=== PATIENT | female | born 1990 | race Asian ===

== ENCOUNTER 2025-04-16 00:15 | Inpatient (IN) | payer SELFPAY ==
[~2025-04-16] VITALS: Ht 157.5 cm; Wt 68.5 kg
[2025-04-16] MEDS: haloperidoL LACTATE 5 MG/ML VIAL IM ONE (02:01)
[2025-04-16] MEDS: LORazepam 2 MG/ML VIAL IM ONE (02:01)
[2025-04-16] MEDS: DiphenhydrAMINE HCL 50 MG/ML VIAL IM ONE (02:01)
[2025-04-16] MEDS ORDERED: haloperidoL 5 MG TABLET PO PRN (03:45)
[2025-04-16] MEDS ORDERED: LORazepam 2 MG TABLET PO PRN (03:45)
[2025-04-16] MEDS ORDERED: ZOLPIDEM TARTRATE 10 MG TABLET PO PRN (03:45)
[2025-04-16 04:00] LABS: COVID AG,FIA SOURCE NASAL SWAB
[2025-04-16 04:13] LABS: SARS-COV2 (COVID) ANTIGEN,FIA Negative (Negative)
[2025-04-16 05:51] LABS: BASOPHILS % (AUTO) 0.7 % (0.0-2.0); EOSINOPHILS % (AUTO) 2.3 % (1.0-6.0); HEMATOCRIT 32.9 % (36-46); HEMOGLOBIN 10.8 g/dL (12.0-16.0); LYMPHOCYTES # (AUTO) 1.4 K/uL (1.0-4.8); LYMPHOCYTES % (AUTO) 30.8 % (22.0-44.0); MEAN CORPUSCULAR HEMOGLOBIN 27.4 pg (26.0-34.0); MEAN CORPUSCULAR HGB CONC 32.9 G/dL (31.0-37.0); MEAN CORPUSCULAR VOLUME 83 fL (80-100); MONOCYTES # (AUTO) 0.5 K/uL (0.1-1.0); MONOCYTES % (AUTO) 9.9 % (2.0-9.0); NEUTROPHILS # (AUTO) 2.6 K/uL (1.8-7.7); NEUTROPHILS % (AUTO) 56.3 % (40.0-70.0); PLATELET COUNT (AUTO) 233 K/uL (150-450); RED BLOOD CELL COUNT(AUTO) 3.95 MIL/uL (4.00-5.20); RED CELL DISTRIBUTION WIDTH 16.8 % (11.5-14.5); WHITE BLOOD COUNT (AUTO) 4.7 K/uL (4.5-11.0)
[2025-04-16 05:55] LABS: ANION GAP 14 mmol/L (8-16); CARBON DIOXIDE 24 mmol/L (22-29); CHLORIDE 107 mmol/L (98-107); CREATININE 0.57 mg/dL (0.60-1.30); GLOMERULAR FILTR. RATE CALC > 60 mL/min (>60); GLUCOSE,RANDOM 144 mg/dL (70-110); POTASSIUM 3.7 mmol/L (3.5-5.1); SODIUM SERUM 145 mmol/L (136-145); UREA NITROGEN, BLOOD 7 mg/dL (7-18)
[2025-04-16 06:57] VITALS: O2SAT 98
[2025-04-16 11:00] VITALS: BP 128/77; PULSE 96; RESP 17; TEMP 98.2; O2SAT 98
[2025-04-16] MEDS ORDERED: DOCUSATE SODIUM 100 MG CAPSULE PO PRN (19:45)
[2025-04-16] MEDS ORDERED: ONDANSETRON 4 MG TABLET PO PRN (19:45)
[2025-04-16] MEDS ORDERED: ALBUTEROL SULFATE HFA 90 MCG/PUFF 8 GM INHALER IH PRN (19:45)
[2025-04-16] MEDS ORDERED: MAGNESIUM HYDROXIDE SUSPENSION 30 ML UDCUP PO PRN (19:45)
[2025-04-16] MEDS ORDERED: CloNIDine HCL 0.1 MG TABLET PO PRN (19:45)
[2025-04-16] MEDS ORDERED: ACETAMINOPHEN 325 MG TABLET PO PRN (19:45)
[2025-04-16] MEDS ORDERED: LOPERAMIDE HCL 2 MG CAPSULE PO PRN (19:45)
[2025-04-16] MEDS ORDERED: MAG HYDROX/ALUMINUM HYD/SIMETH ES 30 ML SUSPENSION UDCUP PO PRN (19:45)
[2025-04-16] MEDS ORDERED: BACITRACIN 28 GM OINTMENT TP PRN (19:45)
[2025-04-16] MEDS ORDERED: BENZOCAINE/MENTHOL [CEPACOL] LOZENGE PO PRN (19:45)
[2025-04-16] MEDS ORDERED: IBUPROFEN 600 MG TABLET PO PRN (19:45)
[2025-04-16] MEDS ORDERED: OMEPRAZOLE 20 MG CAPSULE PO PRN (19:45)
[2025-04-16] MEDS ORDERED: PETROLATUM,WHITE 28 GM JELLY TP PRN (19:45)
[2025-04-16 22:19] VITALS: BP 133/85; PULSE 95; RESP 17; O2SAT 98
[2025-04-17 08:11] VITALS: BP 136/87; PULSE 95; RESP 17; TEMP 97.1; O2SAT 97
[2025-04-17 20:29] VITALS: BP 132/96; PULSE 94; RESP 18; TEMP 97.8; O2SAT 97
[2025-04-18 08:18] VITALS: RESP 16
[2025-04-18 08:56] LABS: BASOPHILS % (AUTO) 0.8 % (0.0-2.0); HEMATOCRIT 37.9 % (36-46); HEMOGLOBIN 12.7 g/dL (12.0-16.0); LYMPHOCYTES # (AUTO) 1.3 K/uL (1.0-4.8); LYMPHOCYTES % (AUTO) 26.9 % (22.0-44.0); MEAN CORPUSCULAR HEMOGLOBIN 27.7 pg (26.0-34.0); MEAN CORPUSCULAR HGB CONC 33.4 G/dL (31.0-37.0); MEAN CORPUSCULAR VOLUME 83 fL (80-100); MONOCYTES # (AUTO) 0.4 K/uL (0.1-1.0); MONOCYTES % (AUTO) 8.2 % (2.0-9.0); NEUTROPHILS # (AUTO) 2.9 K/uL (1.8-7.7); NEUTROPHILS % (AUTO) 60.1 % (40.0-70.0); PLATELET COUNT (AUTO) 267 K/uL (150-450); RED BLOOD CELL COUNT(AUTO) 4.57 MIL/uL (4.00-5.20); RED CELL DISTRIBUTION WIDTH 16.5 % (11.5-14.5); WHITE BLOOD COUNT (AUTO) 4.8 K/uL (4.5-11.0)
[2025-04-18 09:06] LABS: HEMOGLOBIN A1C 5.8 % (3.8-5.6)
[2025-04-18 09:21] LABS: ALANINE AMINOTRANSFERASE 84 U/L (12-78); ALBUMIN 3.9 g/dL (3.4-5.0); ALKALINE PHOSPHATASE 56 U/L (46-116); ANION GAP 9 mmol/L (8-16); ASPARTATE AMINOTRANSFERASE 122 U/L (15-37); BILIRUBIN,TOTAL 0.9 mg/dL (0.1-1.0); CALCIUM, TOTAL 9.4 mg/dL (8.8-10.5); CARBON DIOXIDE 27 mmol/L (22-29); CHLORIDE 100 mmol/L (98-107); CHOL/HDL RATIO 5.2 (3.9-5.7); CHOLESTEROL 249 mg/dL (131-200); CREATININE 0.69 mg/dL (0.60-1.30); GLOMERULAR FILTR. RATE CALC > 60 mL/min (>60); GLUCOSE,RANDOM 149 mg/dL (70-110); HDL CHOLESTEROL 48 mg/dL (40-60); LDL CHOL (CALC.) 131 mg/dL (0-130); POTASSIUM 3.5 mmol/L (3.5-5.1); SODIUM SERUM 136 mmol/L (136-145); T4 (THYROXINE) 7.7 mcg/dL (4.7-13.3); THYROID STIMULATING HORMONE 8.94 uIU/mL (0.36-3.74); TOTAL PROTEIN, SERUM 8.2 g/dL (6.4-8.2); TRIGLYCERIDES 348 mg/dL (15-150); UREA NITROGEN, BLOOD 11 mg/dL (7-18)
== END 2025-04-18 14:40 | disposition home or self-care (01) | DRG 885 ==
LOC: EMS 00:17 → B3A 07:07
PROVIDERS: ADMIT Psychiatry & Neurology Psychiatry; ATTEND Psychiatry & Neurology Psychiatry
PROC: GZHZZZZ Group Psychotherapy (ICD-10-PCS; principal; 2025-04-16)
DX: F33.2 Major depressive disorder, recurrent severe without psychotic features (principal); R45.851 Suicidal ideations; D64.9 Anemia, unspecified; F10.10 Alcohol abuse, uncomplicated; F41.9 Anxiety disorder, unspecified; Z20.822 Contact with and (suspected) exposure to COVID-19; G47.00 Insomnia, unspecified; K59.00 Constipation, unspecified; Y90.6 Blood alcohol level of 120-199 mg/100 ml; K21.9 Gastro-esophageal reflux disease without esophagitis; Z91.51 Personal history of suicidal behavior
CPT/HCPCS: 80048; 80053; 80061; 83036; 84436; 84443; 85025; 96372; 99291; G0480; J1200; J1630; J2060